=== PATIENT | male | born 1990 | race Caucasian/White ===

== ENCOUNTER 2018-01-01 13:50 | Emergency (ER) | payer SELFPAY ==
[2018-01-01 14:21] VITALS: BP 113/68; TEMP 98.4; O2SAT 95
[2018-01-01] MEDS ORDERED: TETANUS,DIPHTHERIA,PERTUSSIS 1 EA SYG IM ONE (14:21)
[2018-01-01] MEDS ORDERED: traMADol 37.5MG/APAP 325MG 1 EA TAB PO ONE (14:22)
[2018-01-01] MEDS ORDERED: IBUPROFEN 200 MG TAB PO ONE (14:22)
--- NOTE | 2018-01-01 14:24 | ED.PDOC ---
History of Present Illness - General Chief Complaint: Upper Extremity Injury Stated Complaint: LACERATIONS TO LEFT FINGERS Time Seen by Provider: 01/01/18 14:21 Source: patient Exam Limitations: no limitations - History of Present Illness Initial Comments: PT REPORTS LACERATING LEFT 3RD AND 4TH DIGIT ON THE LEFT WITH A CHOP SAW. Occurred: just prior to arrival Pain - Upper Extremity: moderate: Hand, left Improving Factors: immobilization Worsening Factors: movement Allergies/Adverse Reactions: Allergies NO KNOWN ALLERGY Allergy (Verified 01/01/18 14:13) Home Medications: Ambulatory Orders Ibuprofen 800 mg PO Q8HR PRN #30 tab 01/01/18 Review of Systems - Review of Systems Constitutional: Denies: chills, fever EENTM: Denies: ear pain, nose congestion Respiratory: Denies: cough, short of breath Musculoskeletal: Denies: joint pain, joint swelling Skin: Denies: change in color, dryness Past Medical History (General) - Patient Medical History Hx Stroke: No Hx Congestive Heart Failure: No Hx Diabetes: No Surgical History: no surgical history Family Medical History - Family History Mother Family History: No Known Physical Exam - Physical Exam General Appearance: Alert, Comfortable, No apparent distress, Well Hydrated, Well Nourished Eyes, Ears, Nose, Throat Exam: normal ENT inspection Neck: normal inspection Cardiovascular/Respiratory: no respiratory distress Shoulder Exam: normal inspection, non-tender, no evidence of injury Elbow/Forearm Exam: normal inspection, non-tender, no evidence of injury Wrist Exam: normal inspection, non-tender, no evidence of injury Hand Exam: laceration - TO THE LATERAL 4TH DIGIT AND SUPERFICIAL LACS/ABRASIONS TO THE DORSAL 3RD DIGIT Neuro/Tendon: normal sensation, normal motor functions, normal tendon functions Mental Status: alert, oriented x 3 Skin Exam: normal color, warm/dry Departure - Departure Clinical Impression: Laceration Time of Disposition: 14:26 Disposition: Discharge to Home or Self Care Condition: Good Departure Forms: ED Discharge - Pt. Copy, Patient Portal Self Enrollment Instructions: DI for Arm Pain, DI for Minor Laceration Diet: resume usual diet Activity: ambulate only with walker Referrals: Humza Benson MD [Primary Care Provider] - 1-2 Weeks Prescriptions: Ibuprofen 800 mg PO Q8HR PRN #30 tab PRN Reason: Pain Home Medications: Ambulatory Orders Ibuprofen 800 mg PO Q8HR PRN #30 tab 01/01/18
== END 2018-01-01 14:43 | disposition home or self-care (01) ==
LOC: ER 13:50
DX: S61.215A Laceration without foreign body of left ring finger without damage to nail, initial encounter (principal); S61.213A Laceration without foreign body of left middle finger without damage to nail, initial encounter; W29.8XXA Contact with other powered hand tools and household machinery, initial encounter

== ENCOUNTER 2018-01-23 06:23 | Emergency (ER) | payer SELFPAY ==
[2018-01-23 06:38] VITALS: BP 128/56; TEMP 99.5; O2SAT 97
--- NOTE | 2018-01-23 07:10 | ED.PDOC ---
History of Present Illness - General Chief Complaint: Skin/Abrasion/Tear Stated Complaint: left buttock abcess, left calf abcess Time Seen by Provider: 01/23/18 07:09 Source: patient Exam Limitations: no limitations - History of Present Illness Initial Comments: Juan Saldivar 27 y/o male recently release fro [facility] stated had multiple breakout of tender erythamatous maculopapular lesion buttocks ,face,and left forearm 5 days after he was [facility]. Timing/Duration: other - see hpi Severity: moderate Location: torso, extremities Improving Factors: nothing Worsening Factors: nothing Associated Symptoms: other - see hpi Allergies/Adverse Reactions: Allergies NO KNOWN ALLERGY Allergy (Verified 01/01/18 14:13) Home Medications: Ambulatory Orders Ibuprofen 800 mg PO Q8HR PRN #30 tab 01/01/18 Rifampin 150 mg PO BID #10 cap 01/23/18 Sulfa/Trimeth 800/160 (Ds) Tab [Bactrim DS] 2 tablet PO BID 7 Days #30 tablet Review of Systems - Review of Systems Constitutional: States: no symptoms reported EENTM: States: no symptoms reported Respiratory: States: no symptoms reported Skin: States: see HPI All other Systems: Reviewed and Negative, No Change from Baseline Past Medical History (General) - Patient Medical History Hx Stroke: No Hx Congestive Heart Failure: No Hx Diabetes: No MRSA Source:: Wound Surgical History: other - orchiopexy - Vaccination History Hx Tetanus, Diphtheria Vaccination: Yes - Social History Hx Tobacco Use: Yes Hx Alcohol Use: Yes Hx Substance Use: No Hx Substance Use Treatment: No Hx Physical Abuse: No Hx Emotional Abuse: No Hx Suspected Abuse: No - Triage Comment ED Triage Comment: red raised area to left buttock and left calf. Family Medical History - Family History Mother Family History: No Known Hx Cardiac Disease: Yes - dad Physical Exam - Physical Exam General Appearance: Alert, Comfortable, No apparent distress Eyes, Ears, Nose, Throat Exam: normal ENT inspection Neck: full range of motion, supple Cardiovascular/Chest: regular rate, rhythm, no murmur Respiratory: lungs clear, normal breath sounds Gastrointestinal/Abdominal: non tender, soft Back Exam: normal inspection Extremity: non-tender, no pedal edema Neurologic: alert, oriented x 3 Skin Exam: warm/dry, normal color Skin Problem Location: lower extremities - forearm, other - buttocks Skin Character: macules, papules, tenderness, thickening Lymphatic: no adenopathy Progress - Progress Progress: 01/23/18 07:23 Vital Signs - 8 hr 01/23/18 06:35 Temperature 99.5 F Pulse Rate [ 108 H Left] Respiratory 16 Rate Blood Pressure 128/56 [Right Arm] O2 Sat by Pulse 97 Oximetry Departure - Departure Clinical Impression: Carbuncle and furuncle of buttock, Carbuncle and furuncle of upper arm and forearm Time of Disposition: 07:24 Disposition: Discharge to Home or Self Care Condition: Good Departure Forms: ED Discharge - Pt. Copy, Patient Portal Self Enrollment Instructions: DI for Boils, Boil Prescriptions: Rifampin 150 mg PO BID #10 cap Sulfa/Trimeth 800/160 (Ds) Tab [Bactrim DS] 2 tablet PO BID 7 Days #30 tablet Home Medications: Ambulatory Orders Ibuprofen 800 mg PO Q8HR PRN #30 tab 01/01/18 Rifampin 150 mg PO BID #10 cap 01/23/18 Sulfa/Trimeth 800/160 (Ds) Tab [Bactrim DS] 2 tablet PO BID 7 Days #30 tablet Additional Instructions: Return to ER if not better in 5 days
[2018-01-23] MEDS ORDERED: CLINDAMYCIN HCL CAP 150 MG CAP PO ONE (07:25)
[2018-01-23] MEDS ORDERED: CLINDAMYCIN PHOSPHATE 150 MG/ML VIAL IM ONE (07:25)
[2018-01-23] MEDS ORDERED: TETANUS,DIPHTHERIA,PERTUSSIS 1 EA SYG IM ONE (07:26)
[2018-01-23] MEDS ORDERED: CHLORHEXIDINE GLUCONATE 4 % 15 ML UD TOP ONE (07:27)
== END 2018-01-23 07:55 | disposition home or self-care (01) ==
LOC: ER 06:23
DX: L02.33 Carbuncle of buttock (principal); L02.434 Carbuncle of left upper limb; Z23 Encounter for immunization; Z87.891 Personal history of nicotine dependence
CPT/HCPCS: 90471; 90715; J3490